=== PATIENT | female | born 1990 | race Caucasian/White ===

== ENCOUNTER 2019-10-06 05:55 | Day surgery (SDC) | payer BC ==
[~2019-10-06] VITALS: Ht 170.2 cm; Wt 79.4 kg
[~2019-10-06 05:55] MED LIST: TRAM50TA2 PO
[2019-10-06] MEDS ORDERED: LIDOCAINE 1% MDV 20ML VIAL ONE (05:56)
[2019-10-06] MEDS ORDERED: ROPIvacaine 0.5% 30 ML INJECTION (J2795 PER 1MG) ONE (05:56)
[2019-10-06] MEDS ORDERED: EPINEPHrine INJ 1 MG/ML 1ML VIAL ONE (05:56)
[2019-10-06] MEDS ORDERED: LR 1,000 ML IV ONE (06:00)
[2019-10-06] MEDS ORDERED: MIDAZOLAM INJ 2 MG/2 ML VIAL (J2250) As Ordered ONE ×2 (06:59→07:07)
[2019-10-06] MEDS ORDERED: fentaNYL 100 MCG/2 ML INJECTION (J3010) As Ordered ONE ×2 (06:59→07:07)
[2019-10-06] MEDS ORDERED: ONDANSETRON 4MG/2ML VIAL (J2405) As Ordered ONE (07:07)
[2019-10-06] MEDS ORDERED: LIDOCAINE 2% INJ 100 MG/5 ML SDV (FOR ANES.) As Ordered ONE (07:07)
[2019-10-06] MEDS ORDERED: HYDROmorphone HCL 2 MG/ML 1ML VIAL (J1170) As Ordered ONE (07:07)
[2019-10-06] MEDS ORDERED: dexameTHASONE 4 MG/ML 1ML VIAL (J1100) As Ordered ONE (07:07)
[2019-10-06] MEDS ORDERED: propofoL 200 MG/20 ML VIAL As Ordered ONE (07:08)
[2019-10-06] MEDS ORDERED: ROCURONIUM BROMIDE 50 MG/5 ML VIAL As Ordered ONE (07:08)
[2019-10-06] MEDS: fentaNYL 100 MCG/2 ML INJECTION (J3010) IV SCH ×2 (07:19→07:21)
[2019-10-06] MEDS ORDERED: ceFAZolin 2 GM/D5W 50 ML IV BAG (J0690 PER 500MG) As Ordered ONE (07:32)
[2019-10-06] MEDS ORDERED: MIDAZOLAM INJ 2 MG/2 ML VIAL (J2250) IV ONE (07:45)
[2019-10-06] MEDS ORDERED: SUGAMMADEX SODIUM 500 MG/5 ML VIAL (BRIDION) As Ordered ONE (07:54)
[2019-10-06] MEDS ORDERED: ePHEDrine SULFATE 25 MG/5 ML(5MG/ML) SYRINGE As Ordered ONE (07:54)
[2019-10-06] MEDS ORDERED: ACETAMINOPHEN 1000MG 100ML IV BTL (OFIRMEV) (J0131 PER 10MG) As Ordered ONE (09:57)
[2019-10-06] MEDS ORDERED: BUPIVACAINE HCL 0.5% 30 ML VIAL As Ordered ONE (10:55)
[2019-10-06] MEDS ORDERED: oxyCODONE 5MG TAB As Ordered ONE (11:26)
[2019-10-06] MEDS: fentaNYL 100 MCG/2 ML INJECTION (J3010) IV PRN ×4 (11:30→11:45)
[2019-10-06] MEDS ORDERED: oxyCODONE 5MG TAB PO PRN (11:45)
[2019-10-06] MEDS ORDERED: ONDANSETRON 4MG/2ML VIAL (J2405) IV PRN (11:45)
[2019-10-06] MEDS ORDERED: LR 1,000 ML IV SCH ×2 (11:45)
--- NOTE | 2019-10-06 11:51 | REP ---
Right foot: Three views. History: Postop. Findings: Three views of the right foot taken through overlying cast material demonstrate operative screw plate fixation of the first, second, and third metatarsal tarsal articulations in good alignment. There are metallic densities overlying the great toe distal phalanx apparently on the toenail. Electronically Signed by Vipin Haley MD 10/06/2019 11:42 A
--- NOTE | 2019-10-06 12:10 | REP ---
RIGHT FOOT SERIES: NINE VIEWS. HISTORY: Intraoperative imaging. Right foot fracture. 3 minutes 20 seconds of fluoroscopy time is reported. FINDINGS: A sequence of nine last image hold fluoroscopically obtained spot radiographs of the right foot document operative arthrodesis of the first through third metatarsal tarsal articulations. Electronically Signed by Vipin Haley MD 10/06/2019 12:20 P
[2019-10-06 13:19] VITALS: BP 123/69
[2019-10-06] MEDS ORDERED: ACETAMINOPHEN 500 MG TAB PO SCH (19:00)
[2019-10-07] MEDS ORDERED: ASPIRIN 81 MG ENTERIC TAB PO SCH (09:00)
--- NOTE | 2019-10-08 00:02 | RO ---
DATE OF PROCEDURE: 10/06/2019 PREPROCEDURE DIAGNOSIS: Right Lisfranc fracture. POSTPROCEDURE DIAGNOSIS: Right Lisfranc fracture. PROCEDURE: 1. Open reduction internal fixation right Lisfranc fracture including first tarsometatarsal joint dislocation, second metatarsal fracture with subluxation at the second tarsometatarsal (TMT) joint, also third TMT joint dislocation. 2. Use of the mini C-arm. SURGEON: Yadira Og MD SALES [employer]PERATIONS ASSOCIATE: PRATIBHA Lama ANESTHESIA: General endotracheal with popliteal nerve block. ESTIMATED BLOOD LOSS: 75 mL. COMPLICATIONS: None. CONDITION: Stable to recovery. INDICATIONS: Cheng Nascimento is a 28-year-old female who sustained a Lisfranc fracture while on vacation in [place]. CT scan showed significant displacement of the first and second TMT joints. Risks and benefits of surgery were discussed with the patient in detail and included, but are not limited to, infection, damage to nerves and blood vessels, continued pain and stiffness, need for additional procedures. Informed consent was obtained in the office. DESCRIPTION OF PROCEDURE: The patient was met in the preoperative holding area where her right lower extremity was marked as the correct operative site. She underwent general anesthesia. A well-padded tourniquet was placed on the right upper thigh. She received antibiotics within 60 minutes prior to incision. Right lower extremity was then prepped and draped in the normal sterile fashion. An official time-out was held where the correct patient, operative side and operative procedure were verified. Using the mini C-arm, I verified my incisions over the first and fourth metatarsals and TMT joints. The leg was exsanguinated with an Esmarch tourniquet, and tourniquet was inflated to 250 mmHg. It was up for approximately 2 hours and 20 minutes. Next, an incision was made over the first TMT joint. Care was taken to avoid superficial nerves. The extensor hallucis longus (EHL) tendon was retracted laterally. The first TMT capsule was incised. There was significant instability to the joint with lateral subluxation. I was able to approach the second TMT joint from this interval as well. Care was taken to avoid the neurovascular bundle. Fracture of the second metatarsal base was well aligned; however, there was subluxation of the fractured second metatarsal and second TMT joint. At this point, my attention was turned to the lateral aspect of the foot. Incision was made over the fourth metatarsal. Care was taken to coagulate crossing vessels and avoid superficial nerves. The extensor tendons were retracted, and the third TMT joint was approached. Its position was confirmed on mini C-arm. Again seen was significant instability of the third TMT joint, and there was actual dorsal subluxation of the joint. At this point, my attention was turned back to the first TMT joint. This was reduced and pinned in place with a 0.062 K-wire. Next, the second metatarsal was reduced with a clamp over the second metatarsal shaft and medial cuneiform. This nicely reduced the second TMT joint, and, again, a 0.062 K-wire was placed across the metatarsal and TMT joint. Finally, the third TMT joint was reduced and pinned in place. X-rays were performed; AP, lateral, mortise view using the mini C-arm and reduction was found to be satisfactory. At this point, I placed a home run screw from the medial cuneiform to the second metatarsal. This was done using a threaded guidewire and drilling with a 2.7 drill over the guidewire. I then placed a solid 3.5 mm screw. This was proximal to the fracture so that I could get good fixation. There was very good bite with the screw. I did have to put the screw a little more proximal than I would normally put it, again to avoid the fracture and to get good fixation. Following the placement of the home run screw, I then bridge plated the first TMT. This was done using a quarter tubular locking plate with associated 2.7 mm screws. Finally, a similar construct was used on the third TMT joint as well. Multiple x-rays were performed in orthogonal views to ensure appropriate hardware placement and reduction. These were all found to be satisfactory. The tourniquet was let down, and hemostasis was maintained. Closure was with #3-0 Vicryl and #3-0 nylon. The patient was placed into a well-padded splint. PLAN: The patient will be non-weightbearing on the right lower extremity. She will keep her leg elevated at all times. She will be on aspirin for deep vein thrombosis (DVT) prophylaxis. I will see her back in 2 weeks for wound check and possible suture removal.
== END 2019-10-06 13:20 | disposition home or self-care (01) ==
LOC: M SDC 05:55
PROVIDERS: ATTEND Orthopaedic Surgery
DX: S93.321A Subluxation of tarsometatarsal joint of right foot, initial encounter (principal); S93.124A Dislocation of metatarsophalangeal joint of right lesser toe(s), initial encounter; X58.XXXA Exposure to other specified factors, initial encounter; Y92.838 Other recreation area as the place of occurrence of the external cause; Y93.9 Activity, unspecified; Y99.9 Unspecified external cause status; F12.10 Cannabis abuse, uncomplicated
CPT/HCPCS: 28485; 28615; 64415; 73630; 76000; 81025; C1713; J0131; J0690; J1100; J1170; J2250; J2405; J2795; J3010

== ENCOUNTER → 2020-01-21 | Outpatient (CLI) | payer BC | LOC: M LABSMTC 10:39 | PROVIDERS: ATTEND Orthopaedic Surgery | DX: Z01.818 Encounter for other preprocedural examination (principal); Z11.59 Encounter for screening for other viral diseases ==

== ENCOUNTER → 2020-06-09 | Outpatient (CLI) | payer BC | LOC: M LABSMTC 08:47 | PROVIDERS: ATTEND Orthopaedic Surgery | DX: Z01.812 Encounter for preprocedural laboratory examination (principal); Z20.828 Contact with and (suspected) exposure to other viral communicable diseases ==

== ENCOUNTER → 2020-06-14 | Outpatient (REF) | payer BC | LOC: M LAB REF 17:06 | PROVIDERS: ATTEND Orthopaedic Surgery | DX: M67.48 Ganglion, other site (principal) ==

== ENCOUNTER → 2021-04-18 | Outpatient (CLI) | payer BC ==
[2021-04-18 18:54] LABS: HEMATOCRIT 36.9 % (36.0-47.0); HEMOGLOBIN 12.3 g/dl (12.0-15.5); MEAN CORPUSCULAR HEMOGLOBIN 31.4 pg (27.0-33.0); MEAN CORPUSCULAR HGB CONC 33.3 g/dl (32.0-36.5); MEAN CORPUSCULAR VOLUME 94.1 fl (80.0-96.0); PLATELET COUNT, AUTOMATED 209 10^3/uL (150-450); RED BLOOD COUNT 3.92 10^6/uL (4.00-5.40); WHITE BLOOD COUNT 6.5 10^3/uL (4.0-10.0)
[2021-04-18 20:27] LABS: GC DNA AMPLIFICATION NEGATIVE (NEGATIVE)
[2021-04-18 20:38] LABS: HEPATITIS C VIRUS ABY INDEX 0.1 INDEX (<0.8); HIV 1&2 SCREEN CENTAUR NEGATIVE (NEGATIVE)
== END ==
LOC: M PLALAB 15:26
PROVIDERS: ATTEND Advanced Practice Midwife
DX: Z34.01 Encounter for supervision of normal first pregnancy, first trimester (principal)

== ENCOUNTER → 2021-05-14 | Outpatient (CLI) | payer BC | LOC: M PLALAB 10:09 | PROVIDERS: ATTEND Advanced Practice Midwife | DX: Z53.20 Procedure and treatment not carried out because of patient's decision for unspecified reasons (principal) ==

== ENCOUNTER → 2021-08-13 | Outpatient (CLI) | payer BC ==
[2021-08-13 13:13] LABS: HEMATOCRIT 36.8 % (36.0-47.0); MEAN CORPUSCULAR HEMOGLOBIN 31.4 pg (27.0-33.0); MEAN CORPUSCULAR HGB CONC 32.6 g/dl (32.0-36.5); MEAN CORPUSCULAR VOLUME 96.3 fl (80.0-96.0); PLATELET COUNT, AUTOMATED 175 10^3/uL (150-450); RED BLOOD COUNT 3.82 10^6/uL (4.00-5.40); WHITE BLOOD COUNT 8.3 10^3/uL (4.0-10.0)
[2021-08-13 14:27] LABS: GC DNA AMPLIFICATION NEGATIVE (NEGATIVE)
== END ==
LOC: M PLALAB 09:25
PROVIDERS: ATTEND Specialist
DX: Z34.02 Encounter for supervision of normal first pregnancy, second trimester (principal)

== ENCOUNTER → 2024-06-08 | Outpatient (CLI) | payer BC | LOC: M PLALAB 15:32 | PROVIDERS: ATTEND Advanced Practice Midwife | DX: Z34.81 Encounter for supervision of other normal pregnancy, first trimester (principal) ==

== ENCOUNTER → 2024-06-30 | Outpatient (CLI) | payer BC ==
[2024-06-30 18:15] LABS: HEMATOCRIT 35.7 % (36.0-47.0); HEMOGLOBIN 11.8 g/dl (12.0-15.5); MEAN CORPUSCULAR HGB CONC 33.1 g/dl (32.0-36.5); MEAN CORPUSCULAR VOLUME 93.7 fl (80.0-96.0); PLATELET COUNT, AUTOMATED 211 10^3/uL (150-450); RED BLOOD COUNT 3.81 10^6/uL (4.00-5.40); WHITE BLOOD COUNT 7.5 10^3/uL (4.0-10.0)
[2024-06-30 19:11] LABS: HIV 1&2 SCREEN NEGATIVE (NEGATIVE)
[2024-06-30 19:20] LABS: HEPATITIS C VIRUS ABY INDEX < 0.02 INDEX (<0.8)
== END ==
LOC: M LAB 16:14 → M PLALAB 16:14
PROVIDERS: ATTEND Advanced Practice Midwife
DX: Z34.81 Encounter for supervision of other normal pregnancy, first trimester (principal)